=== PATIENT | male | born 1960 | race Caucasian/White ===

== ENCOUNTER 2016-09-13 07:13 | Day surgery (SDC) | payer OTHER ==
[~2016-09-13] VITALS: Ht 177.8 cm; Wt 95.0 kg
[~2016-09-13 07:13] MED LIST: No current meds; Sodium Chloride LOK Flush 10 mL Syringe IV PRN; fentaNYL-PF 50 mCg/mL 2 mL Inj IVPUSH PRN
[2016-09-13 07:23] VITALS: BP 121/75; PULSE 53; RESP 16; O2SAT 100
[2016-09-13] MEDS: 0.9% Sodium Chloride 1,000 ML IV SCH ×2 (07:59→08:08)
--- NOTE | 2016-09-13 08:18 | PCM.ENDCOL ---
Colonoscopy Date of Service: Sep 13, 2016 Physician Brian Pelaez MD Pre Procedure Diagnosis: Screening personal history of colon polyp Post Procedure Dx & Findings: Polyp hemorrhoids diverticuli Procedure Colonoscopy PROCEDURE IN DETAIL: Prep adequate Withdrawal time 13 minutes After unremarkable rectal examination the Olympus video colonoscope was inserted patient's anal canal and was advanced to cecum. Landmarks were identified including the ileocecal valve and appendiceal orifice. Scope was withdrawn systematically. Visualized colonic mucosa showed healthy shiny mucosa with normal healthy-appearing vasculature. In the cecum, there were two sub mm polyps which were both removed completely using cold forceps. In the sigmoid colon there are a few small diverticuli In the rectum retroflexion was done which showed hemorrhoids. Anal canal was inspected carefully on the way out and hemorrhoids noted. Impression Polyp 2 status post complete removal Diverticuli Hemorrhoids Recommendation Repeat colonoscopy 5 years Diverticular diet Presedation Assessment Risks and Benefits Informed consent was obtained from the patient after all risks and benefits including but not limited to drug reaction, infection, pain, bleeding, perforation, as well as alternatives were discussed. Patient monitoring Continuous pulse oximetry, cardiac monitoring, blood pressure monitoring, IV access, and oxygen at 2L per nasal cannula. Periprocedural Fentanyl: Fentanyl 100mcg Incrementally Midazolam: Midazolam 5mg Incrementally Complications There were no periprocedural complications identified. Post Procedure Plan Post Procedure Recommendations 1. Restrict activities today. 2. Resume normal activities in the morning. 3. Resume medications. 4. Patient informed of normal post procedure side effects as bloating, drowsiness, blood streaking in the stool. 5. average risk CRCS. If colon polyps come back as: -Hyperplastic- can repeat colonoscopy in 10 years -Tubular adenoma- repeat colonoscopy in 5 years -Tubulovillous/villous adenoma- repeat colonoscopy in 3 years -If any dysplasia- return to clinic as soon as possible 6. Please don't hesitate to call me with any questions. Brian Pelaez MD Sep 13, 2016 08:18
[2016-09-13 08:20] VITALS: BP 111/69; PULSE 52; RESP 16; O2SAT 97
[2016-09-13 08:28] VITALS: BP 115/71; PULSE 50; RESP 16; O2SAT 94
[2016-09-13 08:30] VITALS: BP 113/69; PULSE 67; RESP 16; O2SAT 99
--- NOTE | 2016-09-14 11:15 | PATH ---
SURGICAL PATHOLOGY Attending Physician:Brian Pelaez M.D. CASE STATUS: Signed Out PATIENT NAME: TAMIKO HALE PID: [id number] : 1960 DATE COLLECTED:09/13/2016 16:40 SPECIMEN: Colon, Biopsy CLINICAL HISTORY: 1). CECAL POLYPS X2 FINAL DIAGNOSIS: 1.CECAL POLYPS: TUBULAR ADENOMA INVOLVING BOTH BIOPSY FRAGMENTS. ICD10 CODE D12.0 GROSS DESCRIPTION: The specimen is received in one formalin filled container labeled with the patient's name, sublabeled "cecal polyps x2" and consists of 2 portions of tissue which aggregate to 0.2 x 0.2 x 0.2 CM. The specimen is entirely submitted in one cassette. 09/13/2016 [facility] MICRO DESCRIPTION: See diagnosis. ICD-9 CODES: CPT CODES: 1: 64913 Electronically Signed Out Jcarlos Castaneda MD [facility] Pathology [facility] [address], [place] [address] Technical component performed at [facility], [facility] [address], [place], [address]
== END 2016-09-13 23:59 | disposition home or self-care (01) ==
LOC: END 07:13
PROVIDERS: ATTEND Internal Medicine
DX: Z12.11 Encounter for screening for malignant neoplasm of colon (principal); Z86.010 Personal history of colon polyps; D12.0 Benign neoplasm of cecum; K64.9 Unspecified hemorrhoids; K57.30 Diverticulosis of large intestine without perforation or abscess without bleeding; K59.00 Constipation, unspecified
CPT/HCPCS: 45380; 99153; G0500; J2250; J3010; J7030